=== PATIENT | male | born 1955 | race Caucasian/White ===

== ENCOUNTER 2017-03-20 17:16 | Emergency (ER) | payer OTHER ==
--- NOTE | ~2017-03-20 | CR229 ---
[facility] A Service of [facility] & [facility] RADIOLOGY TEXT RESULTS PATIENT: CHUY BHATTI LOCATION: SED : 57 UNIT #: [id number] AGE: [address]: Rogerio Larkin SEX: M ORDER DR: [id number] [place] [id number] E MR#: [id number] Acc #: [id number] NAME: CHUY BHATTI : 1955 SEX: M STUDY DATE/TIME: 03/20/2017 17:59 UNIT: SED ROOM: STUDY DESCRIPTION: CR Shoulder Min 2 View Lt Attending Physician: Rogerio Larkin P.A.-C. Ordering Physician: Rogerio Larkin P.A.-C. Primary Care Physician: Kaushik Contreras M.D. MEDICAL IMAGING REPORT This report is preliminary unless electronic signature is present. EXAM Left shoulder, 3 views COMPARISON None. INDICATION 61-year-old male with left shoulder pain after tripping and falling today. FINDINGS Pacemaker device is noted, incompletely imaged. No evidence of lead disruption is seen on this exam. The left shoulder is anatomically aligned. There may be minimal osteophyte formation at the humeral head inferiorly. No evidence of acute fracture. IMPRESSION No acute fracture or dislocation of the left shoulder. No significant degenerative change. Dictated by... Bryn Narvaez M.D. THIS IS AN ELECTRONICALLY VERIFIED REPORT Bryn Narvaez M.D. at 03/25/2017 6:04 PM NANDO/irma TD: 03/21/2017 14:25 JOB #: [id number] MEDICAL IMAGING REPORT Page 1 of 1
--- NOTE | ~2017-03-20 | CT71 ---
[facility] RADIOLOGY TEXT RESULTS PATIENT: CHUY BHATTI LOCATION: SED : 57 UNIT #: [id number] AGE: [address]: Rogerio Larkin SEX: M ORDER DR: [id number] [place] [id number] E MR#: [id number] Acc #: [id number] NAME: CHUY BHATTI : 1955 SEX: M STUDY DATE/TIME: 03/20/2017 18:06 UNIT: SED ROOM: STUDY DESCRIPTION: CT Head Wo Contrast Attending Physician: Rogerio Larkin P.A.-C. Ordering Physician: Rogerio Larkin P.A.-C. Primary Care Physician: Kaushik Contreras M.D. MEDICAL IMAGING REPORT This report is preliminary unless electronic signature is present. EXAM CT head without contrast dated 03/20/2017 COMPARISON None. HISTORY Patient tripped and fell today and hit head with pain in the shoulder and head. TECHNIQUE CT of the head was obtained without contrast in the axial plane as per the protocol. This CT exam was performed with one or more of the following radiation dose reduction techniques: Automatic exposure control, adjustment of mA and/or kV according to patient size, and iterative reconstruction. FINDINGS There is moderate swelling/hematoma in the right frontal scalp along the paramidline aspect to the right anterolateral aspect. It extends inferior to the right forehead. No underlying fracture or acute intracranial hemorrhage. Age-appropriate parenchymal volume is seen without hydrocephalus, midline shift, or space-occupying large intracranial mass. S-shaped nasal septal deviation is seen with minimal paranasal sinus mucosal thickening. Mastoid air cells are well-aerated. Orbits do not demonstrate any significant abnormality. IMPRESSION 1. Large swelling/hematoma in the right side of the frontal scalp along the anterior and anterolateral aspect extending to the nearby right side of the forehead. 2. No underlying acute fracture or intracranial hemorrhage. [facility] RADIOLOGY TEXT RESULTS PATIENT: CHUY BHATTI LOCATION: [facility] : 57 UNIT #: [id number] AGE: [address]: Rogerio Larkin PAC SEX: M ORDER DR: Dictated by... Christie Castellanos M.D. THIS IS AN ELECTRONICALLY VERIFIED REPORT Christie Castellanos M.D. at 03/24/2017 9:59 PM CPR/aa TD: 03/21/2017 14:33 JOB #: [id number] MEDICAL IMAGING REPORT Page 1 of 1
[~2017-03-20 17:16] MED LIST: ADVAIR 250-501 EACH IH; ASPIRINEC PO; BAYER ASPIRIN325 M1 PO; COMBIVENT INH14.7 GM INH; COREG PO; COUMADIN5 MG PO; DOCU SOFT100 M1 PO; HYDRALAZINE HCL50 MG PO; IMDUR-ER60 MG PO; LANTUS100 U/ML SUBQ; LEVAQUIN PO; LOTREL 10-20 MG1 CAP PO; METOPROLOL TART25 MG PO; MILK OF MAGNESIA PO; MONTELUKAST SOD10 MG PO; NORVASC10 MG PO; PLAVIX PO; PROCTOFOAM-HC10 G1 RC; PROTONIX PO; SIMVASTATIN40 MG PO; SYMBICORT INH; ZESTRIL10 MG PO
[2017-03-20] MEDS ORDERED: LASIX PO (17:38)
[2017-03-20] MEDS ORDERED: HYDRALAZINE HCL25 MG PO (17:39)
[2017-03-20] MEDS ORDERED: FLOMAX0.4 M1 DOB (17:39)
[2017-03-20] MEDS ORDERED: IMDUR PO (17:39)
[2017-03-20] MEDS ORDERED: LIPITOR40 MG PO (17:39)
== END 2017-03-20 18:53 | disposition home or self-care (01) ==
LOC: SED 17:16
DX: S00.03XA Contusion of scalp, initial encounter (principal); H11.32 Conjunctival hemorrhage, left eye; I11.0 Hypertensive heart disease with heart failure; I50.9 Heart failure, unspecified; I25.2 Old myocardial infarction; Z79.899 Other long term (current) drug therapy; Z79.82 Long term (current) use of aspirin; W01.0XXA Fall on same level from slipping, tripping and stumbling without subsequent striking against object, initial encounter
CPT/HCPCS: 70450; 73030; 99284